=== PATIENT | female | born 1990 | race Two or more races ===

== ENCOUNTER 2022-05-23 12:39 | Emergency (ER) | payer SELFPAY ==
[~2022-05-23] VITALS: Ht 167.6 cm; Wt 68.0 kg
[2022-05-23 13:11] VITALS: BP 121/69
== END 2022-05-23 14:02 | disposition left against medical advice (07) ==
LOC: ER 12:39
DX: F41.9 Anxiety disorder, unspecified (principal); R53.1 Weakness; Z53.21 Procedure and treatment not carried out due to patient leaving prior to being seen by health care provider